=== PATIENT | female | born 1930 | race Hispanic/Latino ===

== ENCOUNTER → 2019-05-06 | Emergency (ER) ==
[~2019-05-06] MED LIST: METRONIDAZOLE 750MG/NS 150ML 150 ML IV ONE; SODIUM CHLORIDE 0.9% 1000ML 1,000 ML IV STA; VANCOMYCIN 1GM/NS 250 ML 250 ML IV ONE; VANCOMYCIN 250MG/5ML ORAL SOLN PO SCH
== END | disposition left against medical advice (07) ==
LOC: ER 19:43
DX: R69 Illness, unspecified (principal)